=== PATIENT | female | born 1955 | race Caucasian/White ===

== ENCOUNTER 2020-09-09 07:00 | Outpatient (CLI) | payer MEDICARE, OTHER | END 2020-09-09 23:59 | disposition home or self-care (01) | LOC: COV 07:00 | PROVIDERS: ATTEND Family Medicine | DX: Z20.822 Contact with and (suspected) exposure to COVID-19 (principal) ==

== ENCOUNTER 2023-05-22 11:30 | Outpatient (CLI) | payer OTHER, MEDICARE | END 2023-05-22 23:59 | disposition short-term general hospital (02) | LOC: EMS 11:30 | DX: R07.9 Chest pain, unspecified (principal); M54.2 Cervicalgia; M25.571 Pain in right ankle and joints of right foot; S51.811A Laceration without foreign body of right forearm, initial encounter; V43.51XA Car driver injured in collision with sport utility vehicle in traffic accident, initial encounter; Y92.413 State road as the place of occurrence of the external cause | CPT/HCPCS: A0425; A0429; A0999 ==